=== PATIENT | male | born 1945 | race Caucasian/White ===

== ENCOUNTER 2016-10-21 12:23 | Inpatient (IN) | payer MEDICARE, OTHER ==
[~2016-10-21] VITALS: Ht 175.3 cm; Wt 122.5 kg
[2016-10-21] VITALS (8 sets, daily range): BP systolic 136–149; BP diastolic 74–75; PULSE 82–86; RESP 24–32; TEMP 97.7–98.5; O2SAT 97–100
[~2016-10-21 12:23] MED LIST: ALBU1AER INH; ASPI81TA82 PO; ATOR40TA PO; CALA180T PO; CENTTAB9 PO; CEPH500C3 PO; CETI10 PO; FURO1TAB93 PO; LEVO.1 PO; LISI-360 PO; LORTA5 PO; METH750T2 PO; POTA-267 PO; PRED10 PO
[2016-10-21] MEDS ORDERED: DIPHTH/TETANUS/ACEL PERTUSSIS (BOOSTER) 0.5 ML VIAL/PFS IM ONE (12:30)
[2016-10-21] MEDS ORDERED: ceFAZolin 2 GM PREMIX 50 ML ONE (12:32)
[2016-10-21] MEDS ORDERED: MORPHINE SULFATE 8 MG/ML INJ ONE (12:32)
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
[2016-10-21 12:45] LABS: I-STAT POTASSIUM 5.6 MMOL/L (3.5-4.9); I-STAT SODIUM 135 MMOL/L (138-146)
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
[2016-10-21] MEDS ORDERED: ONDANSETRON HCL 4 MG/2 ML VIAL ONE ×2 (12:46→13:17)
[2016-10-21 12:49] LABS: AUTOMATED NEUTROPHIL # 10.5 TH/MM3 (1.8-7.7); BASOPHIL # 0.1 TH/MM3 (0-0.2); BASOPHIL % 0.5 % (0.0-2.0); EOSINOPHIL # 0.2 TH/MM3 (0-0.4); EOSINOPHIL % 1.3 % (0.0-4.0); HEMATOCRIT 40.4 % (39.0-51.0); HEMO FLAGS DIFF FINAL; LYMPH % 16.6 % (9.0-44.0); LYMPHOCYTE # 2.3 TH/MM3 (1.0-4.8); MEAN CORPUSCULAR HEMOGLOBIN 30.4 PG (27.0-34.0); MONO % 6.9 % (0.0-8.0); NEUT % 74.7 % (16.0-70.0); PLATELET COUNT 168 TH/MM3 (150-450); RED BLOOD COUNT 4.64 MIL/MM3 (4.50-5.90); RED CELL DISTRIBUTION WIDTH 14.2 % (11.6-17.2)
[2016-10-21 12:59] LABS: APTT (PATIENT) 24.7 SEC (24.3-30.1); PROTHROMBIN TIME - PATIENT 11.2 SEC (9.8-11.6)
[2016-10-21] MEDS ORDERED: IODIXANOL 320 MG/ML 10 ML VIAL (for Rad CT) IV ONE (13:00)
[2016-10-21] MEDS ORDERED: LIDOCAINE 1%/EPINEPHrine 1:100,000 SOLN 50 ML VIAL ONE (13:01)
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
[2016-10-21] MEDS ORDERED: SODIUM CHLORIDE 0.9% FLUSH 5 ML FLUSH IVF PRN (13:15)
[2016-10-21] MEDS ORDERED: Post-op Orders (for Pharmacy) MISC XX ONE (13:15)
[2016-10-21] MEDS ORDERED: NALOXONE HCL 0.4 MG/ML AMP IV PRN (13:15)
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
[2016-10-21] MEDS: MORPHINE SULFATE 4 MG/ML INJ IV PRN ×2 (13:56→17:19)
[2016-10-21] MEDS ORDERED: PANTOPRAZOLE SOD 40 MG DELAYED RELEASE TAB PO SCH (14:00)
[2016-10-21] MEDS ORDERED: ONDANSETRON HCL 4 MG/2 ML VIAL IV PRN (14:00)
[2016-10-21] MEDS: SODIUM CHLOR 0.9% 1000 ML INJ 1,000 ML IV SCH ×2 (14:42→23:27)
[2016-10-21] MEDS ORDERED: levETIRAcetam 500 MG TAB PO SCH (15:00)
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
[2016-10-21] MEDS ORDERED: ATOR40TA16 PO (15:36)
[2016-10-21] MEDS ORDERED: LISI10TA3 PO (15:36)
[2016-10-21] MEDS ORDERED: VERA180T35 PO (15:36)
[2016-10-21] MEDS ORDERED: SODI325T PO (15:36)
[2016-10-21] MEDS: PANTOPRAZOLE SODIUM 40 MG VIAL IV PUSH SCH (15:57)
[2016-10-21] MEDS ORDERED: DEXAMETHASONE SOD PHOS 4 MG/ML VIAL IV PUSH ONE (16:00)
[2016-10-21] MEDS ORDERED: levETIRAcetam INJ 500 MG in SODIUM CHLORIDE 0.9% INJ 100 ML IV ONE (16:00)
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
[2016-10-21] MEDS ORDERED: SODIUM BICARBONATE 8.4% SOLN 50 MEQ/50 ML VIAL SLOW IVP ONE (17:30)
[2016-10-21] MEDS ORDERED: hydrALAZINE HCL 20 MG/ML VIAL IV PUSH PRN (17:30)
[2016-10-21] MEDS ORDERED: RESP: ALBUTEROL 2.5 MG/IPRATROPIUM 0.5 MG NEB (PRN) INH (17:30)
[2016-10-21] MEDS ORDERED: SODIUM POLYSTYRENE SULFONATE SUSP 15 GM/60 ML CUP PO ONE (17:30)
[2016-10-21] MEDS ORDERED: NITROGLYCERIN 2% OINT 1 GM PACKET TOPICAL PRN (17:30)
[2016-10-21] MEDS ORDERED: SODIUM CHLORIDE 0.9% FLUSH 5 ML FLUSH IV FLUSH PRN (17:30)
[2016-10-21] MEDS ORDERED: INSULIN HUMAN REGULAR 1,000 UNITS/10 ML VIAL IV PUSH ONE (17:30)
[2016-10-21] MEDS ORDERED: CALCIUM GLUCONATE 10% 1 GM/10 ML VIAL SLOW IVP ONE (17:30)
[2016-10-21] MEDS ORDERED: ACETAMINOPHEN 500 MG CPLT PO PRN (17:30)
[2016-10-21] MEDS ORDERED: DEXTROSE 50% IN WATER 50 ML VIAL(D50) IV PUSH ONE (17:30)
[2016-10-21] MEDS: ACETAMINOPHEN 1000 MG/100 ML VIAL IV SCH ×2 (18:22→23:27)
[2016-10-21] MEDS: LIDOCAINE HCL 5% PATCH TD SCH (18:33)
[2016-10-21] MEDS: SODIUM BICARBONATE 325 MG TAB PO SCH ×2 (18:33→21:07)
[2016-10-21] MEDS: RESP: ALBUTEROL 2.5 MG/IPRATROPIUM 0.5 MG NEB (SCH) INH (20:20)
[2016-10-21] MEDS: REMOVE OLD PATCH T-DERMAL SCH (21:00)
[2016-10-21] MEDS: levETIRAcetam INJ 500 MG in SODIUM CHLORIDE 0.9% INJ 100 ML IV SCH (21:00)
[2016-10-21] MEDS: SODIUM CHLORIDE 0.9% FLUSH 5 ML FLUSH IV FLUSH SCH (21:00)
[2016-10-21] MEDS: VERAPAMIL HCL 40 MG TAB PO SCH (21:00)
[2016-10-21] MEDS: BACITRACIN TOP OINT 15 GM TUBE TOP SCH (21:00)
[2016-10-21] MEDS: SODIUM CHLORIDE 0.9% FLUSH 5 ML FLUSH IVF SCH (21:00)
[2016-10-21] MEDS: DOCUSATE SODIUM 100 MG CAP PO SCH (21:07)
[2016-10-21] MEDS: METHOCARBAMOL 500 MG TAB PO SCH (21:07)
[2016-10-21] MEDS: oxyCODONE/ACETAMINOPHEN 5 MG/325 MG TAB PO PRN (21:07)
[2016-10-22] VITALS (13 sets, daily range): BP systolic 129–168; BP diastolic 71–82; PULSE 80–92; RESP 16–25; TEMP 97.6–98.9; O2SAT 96–100
[2016-10-22 04:38] LABS: BASOPHIL % 0.1 % (0.0-2.0); HEMATOCRIT 35.7 % (39.0-51.0); HEMO FLAGS DIFF FINAL; LYMPH % 3.4 % (9.0-44.0); LYMPHOCYTE # 0.4 TH/MM3 (1.0-4.8); MEAN CELL VOLUME 86.9 FL (80.0-100.0); MEAN CORPUSCULAR HEMOGLOBIN 30.3 PG (27.0-34.0); MEAN CORPUSCULAR HGB CONC 34.9 % (32.0-36.0); MONO % 2.7 % (0.0-8.0); NEUT % 93.8 % (16.0-70.0); PLATELET COUNT 123 TH/MM3 (150-450); RED CELL DISTRIBUTION WIDTH 14.1 % (11.6-17.2); WHITE BLOOD COUNT 10.7 TH/MM3 (4.0-11.0)
[2016-10-22 05:11] LABS: ALKALINE PHOSPHATASE 68 U/L (45-117); ALT (GPT) 36 U/L (12-78); ANION GAP 10 MEQ/L (5-15); AST (GOT) 35 U/L (15-37); BICARBONATE 22.6 MEQ/L (21.0-32.0); BLOOD UREA NITROGEN 33 MG/DL (7-18); CHLORIDE 103 MEQ/L (98-107); GLOMERULAR FILTRATION RATE 28 ML/MIN (>89); MAGNESIUM 2.1 MG/DL (1.5-2.5); SODIUM (NA) 136 MEQ/L (136-145); TOTAL BILIRUBIN ADULT 0.6 MG/DL (0.2-1.0)
[2016-10-22] MEDS: METHOCARBAMOL 500 MG TAB PO SCH ×3 (05:56→22:16)
[2016-10-22] MEDS: ACETAMINOPHEN 1000 MG/100 ML VIAL IV SCH ×2 (05:56→12:33)
[2016-10-22] MEDS: LEVOTHYROXINE SODIUM 100 MCG TAB PO SCH (05:56)
--- NOTE | 2016-10-22 06:35 | RADRPT ---
EXAM DATE/TIME: 10/22/2016 04:14 [facility] COMPARISON: CT THORAX W CONTRAST, October 21, 2016, 12:42. CHEST SINGLE AP, October 21, 2016, 12:17. INDICATIONS : Shortness of breath. MEDICAL HISTORY : Unobtainable. SURGICAL HISTORY : Unobtainable. ENCOUNTER: Subsequent ACUITY: 2 days PAIN SCORE: Non-responsive. LOCATION: Bilateral chest FINDINGS: Left rib fractures. No pneumothorax seen. Patchy areas of non-consolidative infiltrate in the left lower lung. The right lung is clear. The heart is normal size. CONCLUSION: Patchy infiltrates in the left lower lung. Tee Morgan MD on October 22, 2016 at 6:32 Board Certified Radiologist. This report was verified electronically.
[2016-10-22] MEDS: levETIRAcetam INJ 500 MG in SODIUM CHLORIDE 0.9% INJ 100 ML IV SCH ×2 (07:53→20:38)
[2016-10-22] MEDS: VERAPAMIL HCL 40 MG TAB PO SCH ×2 (07:57→20:38)
[2016-10-22] MEDS: SODIUM BICARBONATE 325 MG TAB PO SCH ×4 (07:57→20:38)
[2016-10-22] MEDS: DOCUSATE SODIUM 100 MG CAP PO SCH ×2 (07:58→20:38)
[2016-10-22] MEDS: LISINOPRIL 10 MG TAB PO SCH (07:58)
[2016-10-22] MEDS: LIDOCAINE HCL 5% PATCH TD SCH (08:00)
[2016-10-22] MEDS: BACITRACIN TOP OINT 15 GM TUBE TOP SCH ×2 (08:11→20:39)
--- NOTE | 2016-10-22 08:16 | HHI.NSPN ---
History Chief Complaint: I feel better Interval History Day 1 after [facility], alert and cooperative, hungry. He is following commands and fluent, has no SOB. Lidoderm patches are helping his rib pain. GCS 15 Review of Systems General: Negative for: fever, chills, insomnia Respiratory: Negative for: shortness of breath, cough, sputum Cardiovascular: Negative for: chest pain, palpitations, orthopnea Gastrointestinal: Negative for: nausea, vomitting, diarrhea, constipation Exam Results Vital Signs Date Time Temp Pulse Resp B/P Pulse Ox O2 Delivery O2 Flow Rate FiO2 10/22/16 06:00 88 10/22/16 04:00 98.5 16 142/82 99 10/21/16 20:22 Nasal Cannula 2.00 Intake and Output 10/21/16 10/21/16 10/22/16 08:00 16:00 00:00 Intake Total 899 ml Balance 899 ml Physical Examination Alert and oriented x3, eomi, speech fluent Moves all extremities purposefully with good strength. No new paresthesias Abd soft NT, RRR, lungs with good aeration Lab, Micro, Other Results Laboratory Tests Test 10/21/16 10/21/16 10/21/16 10/21/16 12:30 13:45 17:44 20:36 White Blood Count 14.0 TH/MM3 Red Blood Count 4.64 MIL/MM3 Hemoglobin 14.1 GM/DL Bedside Hemoglobin 13.9 G/DL Hematocrit 40.4 % Bedside Hematocrit 41.0 % Mean Corpuscular Volume 87.0 FL Mean Corpuscular Hemoglobin 30.4 PG Mean Corpuscular Hemoglobin 35.0 % Concent Red Cell Distribution Width 14.2 % Platelet Count 168 TH/MM3 Mean Platelet Volume 7.5 FL Neutrophils (%) (Auto) 74.7 % Lymphocytes (%) (Auto) 16.6 % Monocytes (%) (Auto) 6.9 % Eosinophils (%) (Auto) 1.3 % Basophils (%) (Auto) 0.5 % Neutrophils # (Auto) 10.5 TH/MM3 Lymphocytes # (Auto) 2.3 TH/MM3 Monocytes # (Auto) 1.0 TH/MM3 Eosinophils # (Auto) 0.2 TH/MM3 Basophils # (Auto) 0.1 TH/MM3 CBC Comment DIFF FINAL Differential Comment Prothrombin Time 11.2 SEC Prothromb Time International 1.0 RATIO Ratio Activated Partial 24.7 SEC Thromboplast Time Bedside Sodium 135 MMOL/L Bedside Potassium 5.6 MMOL/L Bedside Chloride 104 MMOL/L Bedside Blood Urea Nitrogen 35 MG/DL Bedside Creatinine 2.2 MG/DL Bedside Glucose 110 MG/DL Ethyl Alcohol Level LESS THAN 3 MG/DL Blood Type B POSITIVE Antibody Screen NEGATIVE Nasal Screen MRSA (PCR) NEGATIVE Potassium Level 4.9 MEQ/L 4.5 MEQ/L Test 10/22/16 03:33 White Blood Count 10.7 TH/MM3 Red Blood Count 4.10 MIL/MM3 Hemoglobin 12.4 GM/DL Hematocrit 35.7 % Mean Corpuscular Volume 86.9 FL Mean Corpuscular Hemoglobin 30.3 PG Mean Corpuscular Hemoglobin 34.9 % Concent Red Cell Distribution Width 14.1 % Platelet Count 123 TH/MM3 Mean Platelet Volume 7.4 FL Neutrophils (%) (Auto) 93.8 % Lymphocytes (%) (Auto) 3.4 % Monocytes (%) (Auto) 2.7 % Eosinophils (%) (Auto) 0.0 % Basophils (%) (Auto) 0.1 % Neutrophils # (Auto) 10.0 TH/MM3 Lymphocytes # (Auto) 0.4 TH/MM3 Monocytes # (Auto) 0.3 TH/MM3 Eosinophils # (Auto) 0.0 TH/MM3 Basophils # (Auto) 0.0 TH/MM3 CBC Comment DIFF FINAL Differential Comment Sodium Level 136 MEQ/L Potassium Level 5.0 MEQ/L Chloride Level 103 MEQ/L Carbon Dioxide Level 22.6 MEQ/L Anion Gap 10 MEQ/L Blood Urea Nitrogen 33 MG/DL Creatinine 2.32 MG/DL Estimat Glomerular Filtration 28 ML/MIN Rate Random Glucose 180 MG/DL Calcium Level 7.6 MG/DL Phosphorus Level 1.9 MG/DL Magnesium Level 2.1 MG/DL Total Bilirubin 0.6 MG/DL Aspartate Amino Transf 35 U/L (AST/SGOT) Alanine Aminotransferase 36 U/L (ALT/SGPT) Alkaline Phosphatase 68 U/L Total Protein 6.7 GM/DL Albumin 3.3 GM/DL Medical Decision Making Impression and Plan Closed head injury with small contusions, follow up CT pending today. He is alert and stable for transfer to the floor if the CT is stable.We will advance his diet and activity as tolerated. Total Minutes: 10 Fareed Arguello Oct 22, 2016 08:16
[2016-10-22] MEDS: SODIUM CHLORIDE 0.9% FLUSH 5 ML FLUSH IVF SCH ×2 (09:00→20:39)
[2016-10-22] MEDS: SODIUM CHLORIDE 0.9% FLUSH 5 ML FLUSH IV FLUSH SCH ×2 (09:00→20:39)
[2016-10-22] MEDS ORDERED: VERAPAMIL HCL 180 MG SUSTAINED RELEASE TAB PO SCH (09:00)
[2016-10-22] MEDS: RESP: ALBUTEROL 2.5 MG/IPRATROPIUM 0.5 MG NEB (SCH) INH ×3 (10:00→20:36)
--- NOTE | 2016-10-22 10:05 | RADRPT ---
EXAM DATE/TIME: 10/22/2016 09:44 [facility] COMPARISON: CT BRAIN W/O CONTRAST, October 21, 2016, 12:36. INDICATIONS : Follow up bleed. RADIATION DOSE: 48.78 CTDIvol (mGy) MEDICAL HISTORY : Non-responsive. SURGICAL HISTORY : Non-responsive. ENCOUNTER: Subsequent ACUITY: 1 day PAIN SCALE: Non-responsive LOCATION: cranial TECHNIQUE: Multiple contiguous axial images were obtained of the head. Using automated exposure control and adj ustment of the mA and/or kV according to patient size, radiation dose was kept as low as reasonably a chievable to obtain optimal diagnostic quality images. FINDINGS: CEREBRUM: There has been mild enlargement of the focal hemorrhage at the posterior inferior left frontal lobe n ow measuring 1.3 cm. It previously measured 0.7 cm. There has been evolution of small areas of hemorr douglas and edema within the lateral mid right temporal lobe. The ventricles are normal for age. No dana dence of midline shift. No extra-axial fluid collections are seen. POSTERIOR FOSSA: The cerebellum and brainstem are intact. The 4th ventricle is midline. The cerebellopontine angle i s unremarkable. EXTRACRANIAL: The visualized portion of the orbits is intact. There is fluid in the maxillary sinuses being greater on the right, and sphenoid sinuses and posterior ethmoid air cells. There is soft tissue swelling in the left temporal scalp. SKULL: There is fracturing of the left anterior temporal bone. There is a fracture of the mid left zygomatic arch. CONCLUSION: 1. Mild progression of focal hemorrhage at the posterior inferior left frontal lobe and at the mid la teral right temporal lobe. 2. Nondisplaced squamous temporal bone fracture on the left. 3. Left zygomatic arch fracture. 4. Fluid in the sinuses. Lg Gonzales MD on October 22, 2016 at 9:55 Board Certified Radiologist. This report was verified electronically.
[2016-10-22] MEDS: SODIUM CHLOR 0.9% 1000 ML INJ 1,000 ML IV SCH ×2 (10:45→20:39)
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
[2016-10-22] MEDS: PANTOPRAZOLE SODIUM 40 MG VIAL IV PUSH SCH (15:07)
[2016-10-22] MEDS: oxyCODONE/ACETAMINOPHEN 5 MG/325 MG TAB PO PRN (15:08)
--- NOTE | 2016-10-22 19:04 | EKG ---
Date Performed: 10/21/2016 Time Performed: 15:04:14 PTAGE: 89 years EKG: Sinus rhythm NORMAL ECG INTERPRETATION BASED ON A DEFAULT AGE OF 40 YEARS NO PREVIOUS TRACING DOCTOR: Zheng Easley Interpretating Date/Time 10/22/2016 19:03:01
[2016-10-22] MEDS: REMOVE OLD PATCH T-DERMAL SCH (20:38)
[2016-10-23] VITALS (13 sets, daily range): BP systolic 139–166; BP diastolic 78–88; PULSE 84–108; RESP 11–24; TEMP 98–98.9; O2SAT 94–100
[2016-10-23] MEDS: LABETALOL HCL 100 MG/20 ML VIAL IV PUSH PRN ×2 (01:26→17:53)
[2016-10-23] MEDS: MORPHINE SULFATE 4 MG/ML INJ IV PRN ×4 (01:27→22:28)
[2016-10-23] MEDS: RESP: ALBUTEROL 2.5 MG/IPRATROPIUM 0.5 MG NEB (SCH) INH ×3 (03:34→16:47)
[2016-10-23 04:19] LABS: AUTOMATED NEUTROPHIL # 12.5 TH/MM3 (1.8-7.7); BASOPHIL % 0.2 % (0.0-2.0); EOSINOPHIL % 0.1 % (0.0-4.0); HEMATOCRIT 33.3 % (39.0-51.0); HEMO FLAGS DIFF FINAL; LYMPH % 4.8 % (9.0-44.0); LYMPHOCYTE # 0.7 TH/MM3 (1.0-4.8); MEAN CELL VOLUME 85.7 FL (80.0-100.0); MEAN CORPUSCULAR HEMOGLOBIN 30.6 PG (27.0-34.0); MEAN CORPUSCULAR HGB CONC 35.7 % (32.0-36.0); NEUT % 88.9 % (16.0-70.0); PLATELET COUNT 115 TH/MM3 (150-450); RED BLOOD COUNT 3.89 MIL/MM3 (4.50-5.90); RED CELL DISTRIBUTION WIDTH 14.2 % (11.6-17.2); WHITE BLOOD COUNT 14.1 TH/MM3 (4.0-11.0)
[2016-10-23 04:49] LABS: ALT (GPT) 31 U/L (12-78); ANION GAP 11 MEQ/L (5-15); AST (GOT) 34 U/L (15-37); BICARBONATE 21.5 MEQ/L (21.0-32.0); BLOOD UREA NITROGEN 31 MG/DL (7-18); CHLORIDE 99 MEQ/L (98-107); GLOMERULAR FILTRATION RATE 39 ML/MIN (>89); MAGNESIUM 1.9 MG/DL (1.5-2.5); POTASSIUM 4.5 MEQ/L (3.5-5.1); SODIUM (NA) 131 MEQ/L (136-145)
[2016-10-23 04:51] LABS: ALKALINE PHOSPHATASE 63 U/L (45-117); TOTAL BILIRUBIN ADULT 0.6 MG/DL (0.2-1.0)
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
[2016-10-23] MEDS: SODIUM CHLOR 0.9% 1000 ML INJ 1,000 ML IV SCH (06:10)
[2016-10-23] MEDS: LEVOTHYROXINE SODIUM 100 MCG TAB PO SCH (06:10)
[2016-10-23] MEDS: METHOCARBAMOL 500 MG TAB PO SCH ×3 (06:10→20:09)
[2016-10-23] MEDS: oxyCODONE/ACETAMINOPHEN 5 MG/325 MG TAB PO PRN ×2 (08:53→16:20)
[2016-10-23] MEDS: LIDOCAINE HCL 5% PATCH TD SCH (08:55)
[2016-10-23] MEDS: DOCUSATE SODIUM 100 MG CAP PO SCH ×2 (08:56→20:08)
[2016-10-23] MEDS: VERAPAMIL HCL 40 MG TAB PO SCH ×2 (08:56→20:08)
[2016-10-23] MEDS: LISINOPRIL 10 MG TAB PO SCH (08:56)
[2016-10-23] MEDS: SODIUM CHLORIDE 0.9% FLUSH 5 ML FLUSH IV FLUSH SCH ×2 (08:56→20:13)
[2016-10-23] MEDS: SODIUM CHLORIDE 0.9% FLUSH 5 ML FLUSH IVF SCH ×2 (08:57→20:13)
[2016-10-23] MEDS: levETIRAcetam INJ 500 MG in SODIUM CHLORIDE 0.9% INJ 100 ML IV SCH ×2 (08:57→22:16)
[2016-10-23] MEDS: SODIUM BICARBONATE 325 MG TAB PO SCH ×3 (08:57→20:08)
[2016-10-23] MEDS: BACITRACIN TOP OINT 15 GM TUBE TOP SCH ×2 (08:58→21:00)
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
--- NOTE | 2016-10-23 11:32 | HHI.NSPN ---
History Chief Complaint: rib pain Interval History Day 2 after ALF, alert and cooperative, eating and participating in rehab. He is following commands and fluent, has no SOB. Lidoderm patches are helping his rib pain. GCS 15 Review of Systems Cardiovascular: Positive for: chest pain Gastrointestinal: Negative for: nausea, vomitting, diarrhea, constipation Exam Results Vital Signs Date Time Temp Pulse Resp B/P Pulse Ox O2 Delivery O2 Flow Rate FiO2 10/23/16 09:19 98 Nasal Cannula 21 10/23/16 06:00 86 10/23/16 04:00 98.6 16 151/88 10/21/16 20:22 2.00 Intake and Output 10/22/16 10/22/16 10/23/16 08:00 16:00 00:00 Intake Total 320 ml 130 ml 170 ml Output Total 880 ml 600 ml Balance 320 ml -750 ml -430 ml Physical Examination Alert and oriented x3, eomi, speech fluent Moves all extremities purposefully with good strength.No pronator drift No new paresthesias Abd soft NT, RRR, lungs with good aeration but decreased at the bases Lab, Micro, Other Results Laboratory Tests Test 10/23/16 10/23/16 03:34 10:02 White Blood Count 14.1 TH/MM3 Red Blood Count 3.89 MIL/MM3 Hemoglobin 11.9 GM/DL Hematocrit 33.3 % Mean Corpuscular Volume 85.7 FL Mean Corpuscular Hemoglobin 30.6 PG Mean Corpuscular Hemoglobin 35.7 % Concent Red Cell Distribution Width 14.2 % Platelet Count 115 TH/MM3 Mean Platelet Volume 7.5 FL Neutrophils (%) (Auto) 88.9 % Lymphocytes (%) (Auto) 4.8 % Monocytes (%) (Auto) 6.0 % Eosinophils (%) (Auto) 0.1 % Basophils (%) (Auto) 0.2 % Neutrophils # (Auto) 12.5 TH/MM3 Lymphocytes # (Auto) 0.7 TH/MM3 Monocytes # (Auto) 0.8 TH/MM3 Eosinophils # (Auto) 0.0 TH/MM3 Basophils # (Auto) 0.0 TH/MM3 CBC Comment DIFF FINAL Differential Comment Sodium Level 131 MEQ/L Potassium Level 4.5 MEQ/L Chloride Level 99 MEQ/L Carbon Dioxide Level 21.5 MEQ/L Anion Gap 11 MEQ/L Blood Urea Nitrogen 31 MG/DL Creatinine 1.74 MG/DL Estimat Glomerular Filtration 39 ML/MIN Rate Random Glucose 118 MG/DL Calcium Level 8.2 MG/DL Magnesium Level 1.9 MG/DL Total Bilirubin 0.6 MG/DL Aspartate Amino Transf 34 U/L (AST/SGOT) Alanine Aminotransferase 31 U/L (ALT/SGPT) Alkaline Phosphatase 63 U/L Total Protein 6.7 GM/DL Albumin 3.4 GM/DL Serum Osmolality 277 MOSM/KG Medical Decision Making Impression and Plan Closed head injury with small contusions, follow up CT shows left frontal and right parietal contusions. . He is alert and stable for transfer to the floor.We will advance his diet and activity as tolerated. Total Minutes: 10 Fareed Arguello Oct 23, 2016 11:32
[2016-10-23] MEDS: FUROSEMIDE 20 MG TAB PO SCH (11:57)
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
[2016-10-23 14:10] LABS: BLOOD, URINE NEG (NEG); GLUCOSE,URINE NEG (NEG); KETONE, URINE NEG (NEG); NITRITE,URINE NEG (NEG); PH, URINE 5.5 (5.0-8.5); URINE COLOR YELLOW (YELLW/STRAW)
[2016-10-23] MEDS: PANTOPRAZOLE SODIUM 40 MG VIAL IV PUSH SCH (16:45)
[2016-10-23] MEDS ORDERED: oxyCODONE/ACETAMINOPHEN 5 MG/325 MG TAB PO PRN (20:00)
[2016-10-23] MEDS: MORPHINE SULFATE 30 MG CONTROLLED RELEASE TAB PO SCH (20:08)
[2016-10-23] MEDS: REMOVE OLD PATCH T-DERMAL SCH (21:00)
[2016-10-24] VITALS (9 sets, daily range): BP systolic 114–156; BP diastolic 67–87; PULSE 95–108; RESP 16–22; TEMP 97.9–99.1; O2SAT 93–96
[2016-10-24] MEDS: RESP: ALBUTEROL 2.5 MG/IPRATROPIUM 0.5 MG NEB (SCH) INH ×4 (04:29→21:12)
[2016-10-24] MEDS: METHOCARBAMOL 500 MG TAB PO SCH ×3 (06:08→22:59)
[2016-10-24] MEDS: LEVOTHYROXINE SODIUM 100 MCG TAB PO SCH (06:08)
[2016-10-24] MEDS: MORPHINE SULFATE 4 MG/ML INJ IV PRN (06:29)
[2016-10-24 06:56] LABS: AUTOMATED NEUTROPHIL # 9.6 TH/MM3 (1.8-7.7); BASOPHIL # 0.1 TH/MM3 (0-0.2); BASOPHIL % 0.4 % (0.0-2.0); EOSINOPHIL # 0.1 TH/MM3 (0-0.4); EOSINOPHIL % 0.8 % (0.0-4.0); HEMATOCRIT 32.9 % (39.0-51.0); HEMO FLAGS DIFF FINAL; LYMPH % 7.7 % (9.0-44.0); LYMPHOCYTE # 0.9 TH/MM3 (1.0-4.8); MEAN CELL VOLUME 86.7 FL (80.0-100.0); MEAN CORPUSCULAR HGB CONC 34.6 % (32.0-36.0); MONO % 9.7 % (0.0-8.0); NEUT % 81.4 % (16.0-70.0); PLATELET COUNT 110 TH/MM3 (150-450); RED CELL DISTRIBUTION WIDTH 14.4 % (11.6-17.2); WHITE BLOOD COUNT 11.8 TH/MM3 (4.0-11.0)
--- NOTE | 2016-10-24 07:13 | RADRPT ---
EXAM DATE/TIME: 10/24/2016 05:49 [place] COMPARISON: CT THORAX W CONTRAST, October 21, 2016, 12:42. CHEST SINGLE AP, October 23, 2016, 3:49. INDICATIONS : Short of breath MEDICAL HISTORY : Hypertension. Chronic obstructive pulmonary disease. SURGICAL HISTORY : aotic stent ENCOUNTER: Subsequent ACUITY: 4 - 6 days PAIN SCORE: 8/10 LOCATION: Bilateral chest FINDINGS: Mild left lung base atelectasis and/or infiltrate is seen. There is prominence of the aortic arch and not changed part of it is technical. The rest of the examination has not significantly changed. CONCLUSION: Mild left lung base atelectasis and/or infiltrate is seen. Kelby Fernandez MD on October 24, 2016 at 7:11 Board Certified Radiologist. This report was verified electronically.
[2016-10-24 07:25] LABS: ALT (GPT) 26 U/L (12-78); ANION GAP 12 MEQ/L (5-15); AST (GOT) 24 U/L (15-37); BICARBONATE 21.1 MEQ/L (21.0-32.0); BLOOD UREA NITROGEN 29 MG/DL (7-18); CHLORIDE 97 MEQ/L (98-107); MAGNESIUM 1.9 MG/DL (1.5-2.5); POTASSIUM 4.5 MEQ/L (3.5-5.1); SODIUM (NA) 130 MEQ/L (136-145)
[2016-10-24 07:27] LABS: ALKALINE PHOSPHATASE 59 U/L (45-117); GLOMERULAR FILTRATION RATE 40 ML/MIN (>89)
[2016-10-24] MEDS: VERAPAMIL HCL 40 MG TAB PO SCH ×2 (08:10→22:59)
[2016-10-24] MEDS: SODIUM CHLORIDE 0.9% FLUSH 5 ML FLUSH IV FLUSH SCH ×2 (08:11→22:58)
[2016-10-24] MEDS: MORPHINE SULFATE 30 MG CONTROLLED RELEASE TAB PO SCH ×2 (08:11→23:00)
[2016-10-24] MEDS: DOCUSATE SODIUM 100 MG CAP PO SCH ×2 (08:11→22:59)
[2016-10-24] MEDS: SODIUM CHLORIDE 0.9% FLUSH 5 ML FLUSH IVF SCH (08:11)
[2016-10-24] MEDS: SODIUM BICARBONATE 325 MG TAB PO SCH ×2 (08:12→22:59)
[2016-10-24] MEDS: LISINOPRIL 10 MG TAB PO SCH (08:12)
[2016-10-24] MEDS: FUROSEMIDE 20 MG TAB PO SCH (08:12)
[2016-10-24] MEDS: LIDOCAINE HCL 5% PATCH TD SCH (08:14)
[2016-10-24] MEDS: BACITRACIN TOP OINT 15 GM TUBE TOP SCH ×2 (08:15→21:00)
[2016-10-24] MEDS: levETIRAcetam INJ 500 MG in SODIUM CHLORIDE 0.9% INJ 100 ML IV SCH (08:15)
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
[2016-10-24] MEDS: SENNOSIDES 8.6 MG TAB PO PRN (11:40)
--- NOTE | 2016-10-24 11:40 | EC ---
Study Study Date:10/23/2016 STUDY CONCLUSIONS SUMMARY - Left ventricle: The cavity size was normal. Wall thickness was normal. Systolic function was normal. The estimated ejection fraction was in the range of 50% to 55%. Wall motion was normal; there were no regional wall motion abnormalities. - Aortic valve: Valve area: 2.76cm^2 (Vmax). - Mitral valve: Mild regurgitation. - Tricuspid valve: Mild-moderate regurgitation. If LV function is below 40, please consider prescribing an ACEI or ARB or document rationale for non-use. PROCEDURE DATA STUDY STATUS: Elective. Procedure: Transthoracic echocardiography. Image quality was good. Scanning was performed from the parasternal, apical, and subcostal acoustic windows. Study completion: The patient tolerated the procedure well. Transthoracic echocardiography. M-mode, complete 2D, complete spectral Doppler, and color Doppler. Height: Height: 69in. Weight: Weight: 251.5lb. Body mass index: BMI: 37.2kg/m^2. Body surface area: BSA: 2.28m^2. Patient status: Inpatient. CARDIAC ANATOMY LEFT VENTRICLE: The cavity size was normal. Wall thickness was normal. Systolic function was normal. The estimated ejection fraction was in the range of 50% to 55%. Wall motion was normal; there were no regional wall motion abnormalities. AORTIC VALVE: Trileaflet; normal thickness leaflets. Doppler: Transvalvular velocity was within the normal range. There was no stenosis. No regurgitation. Valve area: 2.76cm^2 (Vmax). Indexed valve area: 1.21cm^2/m^2 (Vmax). Peak gradient: 10mm Hg (S). AORTA: Aortic root: The aortic root was normal in size. MITRAL VALVE: Structurally normal valve. Doppler: Transvalvular velocity was within the normal range. There was no evidence for stenosis. Mild regurgitation. Valve area by pressure half-time: 4.4cm^2. Indexed valve area by pressure half-time: 1.93cm^2/m^2. LEFT ATRIUM: The atrium was normal in size. RIGHT VENTRICLE: The cavity size was normal. Wall thickness was normal. PULMONIC VALVE: Doppler: Transvalvular velocity was within the normal range. There was no evidence for stenosis. No regurgitation. TRICUSPID VALVE: Structurally normal valve. Doppler: Transvalvular velocity was within the normal range. Mild-moderate regurgitation. Peak gradient: 28mm Hg (D). PULMONARY ARTERY: The main pulmonary artery was normal-sized. Systolic pressure was within the normal range. RIGHT ATRIUM: The atrium was normal in size. PERICARDIUM: There was no pericardial effusion. SYSTEMIC VEINS: Inferior vena cava: The vessel was normal in size. Patient weight: 251.5lb _Ejection fraction:_ 65-75% _Fractional shortening:_ 32% up to 5Kg 5-11.5Kg 11.6-22.9Kg 23-45Kg 45-57Kg Aortic Root 7-13 <17 13-22 17-27 17-27 LA diam 6-13 <23 24-38 33-47 37-40 RVID 10-17 7-15 7-15 7-18 8-17 LVIDd 12-22 <32 24-38 33-47 37-40 LVPW 2-4 3-6 5-7 6-8 7-8 IVS 2-4 3-6 5-7 6-8 7-8 BASIC MEASUREMENTS ADULT NORMAL Left ventricle Volume, ED, MOD, 1-plane 93 ml Volume, ES, MOD, 1-plane 40 ml Ejection fraction, MOD, 1-plane 57 % Stroke volume, MOD, 1-plane 53 ml Volume index, ED, MOD, 1-plane 41 ml/m^2 Volume index, ES, MOD, 1-plane 18 ml/m^2 Stroke index, MOD, 1-plane 23.2 ml/m^2 Aortic valve Leaflet separation 17 mm 15-26 BASIC MEASUREMENTS ADULT NORMAL Aortic valve Leaflet separation 17 mm 15-26 Aorta Root diameter, ED 34 mm 20-37 DOPPLER MEASUREMENTS ADULT NORMAL Aortic valve Peak velocity, S 160 cm/s Peak gradient, S 10 mm Hg Valve area, Vmax 2.76 cm^2 Valve area index, Vmax 1.21 cm^2/m^2 Mitral valve Peak E-wave velocity 54.8 cm/s Peak A-wave velocity 61.2 cm/s Pressure half-time 50 ms Peak E/A ratio 0.9 Valve area, pressure half-time 4.4 cm^2 Valve area index, pressure half-time 1.93 cm^2/m^2 Tricuspid valve Peak gradient, D 28 mm Hg Maximal inflow velocity 265 cm/s Systemic veins Estimated CVP 10 mm Hg Pulmonic valve Peak velocity, S 118 cm/s LEGEND: Mean values are shown as u=mean value. Asterisk (*) monique values outside specified normal range. Prepared and signed by Bubba Willis [id number]
[2016-10-24] MEDS: SODIUM CHLOR 0.9% 1000 ML INJ 1,000 ML IV SCH (12:05)
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
[2016-10-24] MEDS ORDERED: LACTULOSE SYRUP 20 GM/30 ML CUP PO ONE (14:30)
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
[2016-10-24] MEDS: PANTOPRAZOLE SODIUM 40 MG VIAL IV PUSH SCH (16:28)
[2016-10-24] MEDS ORDERED: ASPI1TAB69 PO (17:34)
[2016-10-24] MEDS ORDERED: ALBUAER3 INH (17:35)
[2016-10-24] MEDS ORDERED: ZYRT10CA PO (17:37)
[2016-10-24] MEDS ORDERED: METH750T PO (17:50)
[2016-10-24] MEDS ORDERED: LEVO.1 PO (17:51)
[2016-10-24] MEDS ORDERED: MULT1TAB84 PO (17:51)
[2016-10-24] MEDS: REMOVE OLD PATCH T-DERMAL SCH (21:00)
[2016-10-24] MEDS ORDERED: MAGNESIUM HYDROXIDE SUSP 30 ML CUP PO SCH (21:00)
[2016-10-25] VITALS (8 sets, daily range): BP systolic 103–147; BP diastolic 74–88; PULSE 86–109; RESP 16–18; TEMP 97.1–99.5; O2SAT 92–96
[2016-10-25] MEDS: RESP: ALBUTEROL 2.5 MG/IPRATROPIUM 0.5 MG NEB (SCH) INH ×3 (03:54→16:19)
[2016-10-25] MEDS: LEVOTHYROXINE SODIUM 100 MCG TAB PO SCH (05:22)
[2016-10-25] MEDS: METHOCARBAMOL 500 MG TAB PO SCH ×2 (05:22→15:01)
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
[2016-10-25] MEDS ORDERED: BISACODYL 10 MG SUPP RECTAL ONE (08:00)
[2016-10-25] MEDS ORDERED: BISACODYL EC 5 MG TABEC PO ONE (08:00)
[2016-10-25] MEDS: LIDOCAINE HCL 5% PATCH TD SCH (08:03)
[2016-10-25] MEDS: SENNOSIDES 8.6 MG TAB PO PRN (08:05)
[2016-10-25] MEDS: SODIUM CHLOR 0.9% 1000 ML INJ 1,000 ML IV SCH (08:05)
[2016-10-25] MEDS: LISINOPRIL 10 MG TAB PO SCH (08:06)
[2016-10-25] MEDS: SODIUM BICARBONATE 325 MG TAB PO SCH (08:06)
[2016-10-25] MEDS: FUROSEMIDE 20 MG TAB PO SCH (08:06)
[2016-10-25] MEDS: MORPHINE SULFATE 30 MG CONTROLLED RELEASE TAB PO SCH (08:07)
[2016-10-25] MEDS: VERAPAMIL HCL 40 MG TAB PO SCH (08:07)
[2016-10-25] MEDS: DOCUSATE SODIUM 100 MG CAP PO SCH (08:07)
[2016-10-25] MEDS: SODIUM CHLORIDE 0.9% FLUSH 5 ML FLUSH IV FLUSH SCH (08:07)
[2016-10-25] MEDS: BACITRACIN TOP OINT 15 GM TUBE TOP SCH (08:09)
[2016-10-25] MEDS ORDERED: LACTULOSE SYRUP 20 GM/30 ML CUP PO SCH (09:00)
[2016-10-25 09:01] LABS: ALKALINE PHOSPHATASE 62 U/L (45-117); ALT (GPT) 26 U/L (12-78); ANION GAP 8 MEQ/L (5-15); AST (GOT) 27 U/L (15-37); BICARBONATE 25.6 MEQ/L (21.0-32.0); BLOOD UREA NITROGEN 36 MG/DL (7-18); CHLORIDE 97 MEQ/L (98-107); GLOMERULAR FILTRATION RATE 35 ML/MIN (>89); POTASSIUM 4.4 MEQ/L (3.5-5.1); SODIUM (NA) 131 MEQ/L (136-145); TOTAL BILIRUBIN ADULT 0.9 MG/DL (0.2-1.0)
--- NOTE | 2016-10-25 12:58 | HHI.NSPN ---
History Chief Complaint: i am ok Interval History Day 4 after LONGTERM, awake and cooperative, eating and participating in rehab. He is following commands and fluent, has no SOB. Lidoderm patches are helping his rib pain. GCS 15. He has been mores sleepy in the past 2 days. His sodium has been low but stable 130-131. Review of Systems General: Negative for: fever, chills, insomnia Respiratory: Negative for: shortness of breath, cough, sputum Cardiovascular: Negative for: chest pain, palpitations, orthopnea Gastrointestinal: Negative for: nausea, vomitting, diarrhea, constipation Exam Results Vital Signs Date Time Temp Pulse Resp B/P Pulse Ox O2 Delivery O2 Flow Rate FiO2 10/25/16 12:13 97.4 94 18 103/75 95 10/25/16 09:06 21 10/23/16 09:19 Nasal Cannula 10/21/16 20:22 2.00 Intake and Output 10/24/16 10/24/16 10/25/16 08:00 16:00 00:00 Intake Total 500 ml 1497 ml Output Total 200 ml 150 ml Balance 300 ml 1347 ml Physical Examination Alert and oriented x3, eomi, speech fluent, lethargic at times, with drooping of the eyelids especially on the left with scleral ecchymosis Moves all extremities purposefully with good strength. Normal tone and finger dexterity bilaterally Paresthesias prominent in the right hand Walks with a walker Lab, Micro, Other Results Laboratory Tests Test 10/25/16 10/25/16 07:10 09:45 Sodium Level 131 MEQ/L Potassium Level 4.4 MEQ/L Chloride Level 97 MEQ/L Carbon Dioxide Level 25.6 MEQ/L Anion Gap 8 MEQ/L Blood Urea Nitrogen 36 MG/DL Creatinine 1.90 MG/DL Estimat Glomerular Filtration 35 ML/MIN Rate Random Glucose 95 MG/DL Calcium Level 7.8 MG/DL Total Bilirubin 0.9 MG/DL Aspartate Amino Transf 27 U/L (AST/SGOT) Alanine Aminotransferase 26 U/L (ALT/SGPT) Alkaline Phosphatase 62 U/L Total Protein 6.6 GM/DL Albumin 3.0 GM/DL Urine Random Sodium 62 MEQ/L Medical Decision Making Impression and Plan Closed head injury with small contusions,thin SAH, follow up CT shows left frontal and right parietal contusions. He is awake and plans rehab or home with home health.Hyponatremia to be monitored, urine sodium is hi. A regular diet is ordered until the sodium is normal. Follow up Ct is ordered for tomorrow. Total Minutes: 10 Fareed Arguello Oct 25, 2016 12:58
[2016-10-25] MEDS ORDERED: OXYC1TAB63 PO (13:09)
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
[2016-10-25] MEDS ORDERED: SENN8.6T15 PO (14:18)
[2016-10-25] MEDS ORDERED: DOCU1CAP39 PO (14:18)
[2016-10-25] MEDS ORDERED: MILKSUS PO (14:18)
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
[2016-10-25] MEDS: PANTOPRAZOLE SODIUM 40 MG VIAL IV PUSH SCH (15:01)
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
[2017-01-05] MEDS ORDERED: VERA180C3 PO (14:54)
[2017-01-05] MEDS ORDERED: CETI10 PO (14:54)
[2017-01-05] MEDS ORDERED: ASPI81CH7 CHEW (14:54)
== END 2016-10-25 17:08 | disposition home health service (06) | DRG 964 ==
LOC: NEPI 12:23 → NEDA 12:59 → MERGE 12:59 → EDBD 12:59 → N03A 13:47 → N05A 10-23 20:50
PROVIDERS: ADMIT Surgery; ATTEND Surgery
DX: S06.5X1A Traumatic subdural hemorrhage with loss of consciousness of 30 minutes or less, initial encounter (principal); S22.43XA Multiple fractures of ribs, bilateral, initial encounter for closed fracture; S27.321A Contusion of lung, unilateral, initial encounter; N17.9 Acute kidney failure, unspecified; G62.9 Polyneuropathy, unspecified; E87.1 Hypo-osmolality and hyponatremia; J44.9 Chronic obstructive pulmonary disease, unspecified; E87.5 Hyperkalemia; R40.2411 Glasgow coma scale score 13-15, in the field [EMT or ambulance]; I12.9 Hypertensive chronic kidney disease with stage 1 through stage 4 chronic kidney disease, or unspecified chronic kidney disease; S50.312A Abrasion of left elbow, initial encounter; S20.312A Abrasion of left front wall of thorax, initial encounter; S80.212A Abrasion, left knee, initial encounter; S40.812A Abrasion of left upper arm, initial encounter; E03.9 Hypothyroidism, unspecified; E78.5 Hyperlipidemia, unspecified; G47.33 Obstructive sleep apnea (adult) (pediatric); S06.2X1A Diffuse traumatic brain injury with loss of consciousness of 30 minutes or less, initial encounter; K80.20 Calculus of gallbladder without cholecystitis without obstruction; I25.10 Atherosclerotic heart disease of native coronary artery without angina pectoris; E66.9 Obesity, unspecified; N18.3 Chronic kidney disease, stage 3 (moderate); I71.4 Abdominal aortic aneurysm, without rupture; E87.70 Fluid overload, unspecified; Z68.39 Body mass index [BMI] 39.0-39.9, adult; Z86.79 Personal history of other diseases of the circulatory system; Z87.891 Personal history of nicotine dependence; Z95.5 Presence of coronary angioplasty implant and graft; V27.2XXA Unspecified motorcycle rider injured in collision with fixed or stationary object in nontraffic accident, initial encounter
CPT/HCPCS: 70450; 71010; 71260; 72125; 72170; 74177; 80053; 80307; 81003; 82435; 82565; 82947; 83735; 83930; 83935; 84100; 84132; 84295; 84300; 84520; 85025; 85610; 85730; 86850; 86900; 86901; 87641; 90471; 90715; 93005; 93306; 94150; 94640; 94664; 96374; 96375; 99291; A0431-QM-SH; A0436-QM-SH; C9113; G0390; J0131; J0360; J0690; J1100; J1953; J2270; J2405; J7030; L0150; Q9967

== ENCOUNTER 2016-11-22 16:06 | Emergency (ER) | payer MEDICARE, OTHER ==
[~2016-11-22] VITALS: Ht 175.3 cm; Wt 109.0 kg
[~2016-11-22 16:06] MED LIST changes: -ALBU1AER INH; +ALBUAER3 INH; +ASPI1TAB69 PO; -ASPI81TA82 PO; -ATOR40TA PO; +ATOR40TA16 PO; -CALA180T PO; -CENTTAB9 PO; -CEPH500C3 PO; -CETI10 PO; +DOCU1CAP39 PO; -FURO1TAB93 PO; -LISI-360 PO; +LISI10TA3 PO; -LORTA5 PO; +METH750T PO; -METH750T2 PO; +MILKSUS PO; +MULT1TAB84 PO; +OXYC1TAB63 PO; -POTA-267 PO; -PRED10 PO; +SENN8.6T15 PO; +SODI325T PO; +VERA180T35 PO; +ZYRT10CA PO
[2016-11-22 16:14] VITALS: BP 112/69; PULSE 72; RESP 18; TEMP 97.9; O2SAT 98
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
--- NOTE | 2016-11-22 17:26 | RADHPO ---
EXAM DATE/TIME: 11/22/2016 17:01 [facility] COMPARISON: No previous studies available for comparison. INDICATIONS : Right arm pain. MEDICAL HISTORY : Hypercholesterolemia. Gastroesophageal reflux disease. Chronic obstructive pulmonary disease. Hypothy roidism. AAA. Hypertension. Sleep apnea. SURGICAL HISTORY : Coronary artery stent. Abdominal aortic aneurysm repair. ENCOUNTER: Initial ACUITY: 3 days PAIN SCORE: 5/10 LOCATION: Right arm. FINDINGS: There is spontaneous flow documented in the brachial, basilic, axillary, and subclavian veins. The v essels are compressible and augmentation response is documented. No filling defects are seen. The f low is phasic with respiration. Direction of flow in the jugular vein is caudal. There is nonocclus thomas thrombus present in the cephalic vein extending from the antecubital fossa to the mid forearm reg ion. CONCLUSION: Cephalic venous thrombosis otherwise patent venous system. Fritz García MD on November 22, 2016 at 17:24 Board Certified Radiologist. This report was verified electronically.
[2017-01-05] MEDS ORDERED: ASPI81CH7 CHEW (14:54)
[2017-01-05] MEDS ORDERED: CETI10 PO (14:54)
[2017-01-05] MEDS ORDERED: VERA180C3 PO (14:54)
== END 2016-11-22 17:46 | disposition home or self-care (01) ==
LOC: PHEFT 16:06
DX: I82.611 Acute embolism and thrombosis of superficial veins of right upper extremity (principal); I80.8 Phlebitis and thrombophlebitis of other sites; E78.00 Pure hypercholesterolemia, unspecified; J44.9 Chronic obstructive pulmonary disease, unspecified; I25.10 Atherosclerotic heart disease of native coronary artery without angina pectoris; I10 Essential (primary) hypertension; E07.9 Disorder of thyroid, unspecified; G47.30 Sleep apnea, unspecified; Z87.891 Personal history of nicotine dependence
CPT/HCPCS: 93971